=== PATIENT | male | born 1985 | race Caucasian/White ===

== ENCOUNTER 2023-10-30 10:02 | Outpatient (CLI) | payer OTHER, SELFPAY ==
--- OUTSIDE RECORDS SUMMARY | 2023-10-30 10:05 | XMS_ITS | Encounter Summary ---
Author Name [facility] Organization Department of Vetera Affairs Address [address] [place] [address] Support Name Relationship Address Phone VETO VELIZ Next of Kin [address] [place] [address] VETO ABDALLA Emergency Contact [address] [place] [phone] VETO ABDALLA Next of Kin [address] [place] [address] VETO ABDALLA Emergency Contact [address] [place] [phone] Insurance Providers: All historical and current Section Date Range: From patient's date of to the date document was created. This section includes the names of all active insurance providers for the patient. Insurance Provider Type of Coverage Plan Name Start of Policy Coverage End of Policy Coverage Group Number Member ID Insurance Provider's Telephone Number Policy Gilmore's Name Patient's Relationship to Policy Gilmore [employer]) PRESCRIPT ION NTCA Oct 26, 2014 [id number] [phone] TITI ABDALLA PATIENT [facility] NTCA GROUP HEALT H Oct 26, 2014 [id number] [phone] TITI ABDALLA PATIENT Selected Encounter This section includes the information on record at [place] for the Encounter. Date/Time Encounter Type Encounter Description Reason Pro vider Source Oct 29, 2023 11:24 AM Outpatient Encounter EVENT (HISTORICAL) IHE Encounter Template Text not used by [facility] Plan of Treatment: Future Appointments (+ 6 months) and Future Tests (+/- 45 days) The Plan of Treatment section includes future care activities for the patient from all [facility] treatmentfacilities. This section includes future appointments and future orders which are active, pending or scheduled. Future Appointments This section includes appointments that were scheduled to occur 6 months from the date of the Encounter, up to a maximum of 20 appointments. The data comes from all [facility] Appointment Date/Time Appointment Type Appointme nt Facility Name Oct 30, 2023 10:15 AM AMBULATORY - NONE [facility] Active, Pending, and Scheduled Orders This section includes a listing of several types of active, pending, and scheduled orders, including clinic medications orders, diagnostic test orders, procedure orders and consult orders; where the start date of the order is 45 days before the date of the Encounter or 45 days after the date of theEncounter. The data comes from all [facility]. Test Date/Time Test Type Test Details Facility Name Oct 29, 2023 04:02 PM Consult Order COMMUNITY CARE-MRI Cons Wireless Network Engineer's Choice [facility] Oct 30, 2023 12:00 AM Imaging - Magnetic Resonance Imaging (MRI) Order MRI ELBOW RIGHT (P) [facility] Social History: Smoking Status (Most current) and Tobacco Use (All prior to encounter date) This section includes the most current, and the historical, smoking and tobacco- related health factors from the [place] facility where the Encounter took place. Current Smoking Status This section includes the most current smoking, or tobacco-related health factor, from the [place] facility where the Encounter took place. Date/Time Current Smoking Status Comment Facil ity Nov 09, 2013 09:07 AM FORMER TOBACCO USE <1Y [facility] Tobacco Use History This section includes a history of the smoking, or tobacco-related health factors, that were collected on or before the date of the Encounter. The data comes from the [place] facility where the Encounter took place. Date/Time Smoking Status/Tobacco Use Comment F acility Mar 20, 2009 12:34 AM CURRENT TOBACCO USER [facility]
--- OUTSIDE RECORDS SUMMARY | 2023-10-30 10:05 | XMS_ITS | Encounter Summary ---
Author Name Department of Vetera Affairs Organization Department of Vetera Affairs Address [address] [place] [address] Support Name Relationship Address Phone VETO VELIZ Next of Kin [address] [place] [address] VETO ABDALLA Emergency Contact [address] [place] [phone] VETO ABDALLA Next of Kin [address] [place] [address] VETO ABDALLA Emergency Contact [address] [place] [phone] Insurance Providers: All historical and current [...] SCRIPTS) PRESCRIPT ION NTCA Oct 26, 2014 [id number] [phone] TITI ABDLALA PATIENT [facility] NTCA GROUP HEALT H Oct 26, 2014 [id number] TITI ABDALLA PATIENT Selected Encounter This section includes the information on record at [place] for the Encounter. Date/Time Encounter Type Encounter Description Reason Pro vider Source Dec 26, 2022 11:41 AM Outpatient Encounter CLINICAL PHARMACY E Encounter Template Text not used by [place] Plan of Treatment: Future Appointments (+ 6 months) and Future Tests (+/- 45 days) The Plan of Treatment section includes future care activities for the patient from all [place] treatmentfacilities. This section includes future appointments and future orders which are active, pending or scheduled. Future Appointments This section includes appointments that were scheduled to occur 6 months from the date of the Encounter, up to a maximum of 20 appointments. The data comes from all [place] treatment facilities. Appointment Date/Time Appointment Type Appointme nt Facility Name Feb 09, 2023 09:00 AM AMBULATORY - MEDICINE [facility] Lab Results: +/- 30 days of the encounter This section includes the Chemistry and Hematology Lab Results on record with [place] for the patient. Radiology Reports and Pathology Reports are provided separately, in subsequent sections. Lab Results This section contains the Chemistry/Hematology Results that were resulted 30 days before or 30 daysafter the date of the Encounter. Date/Time Source Result Type Result - Unit Interpretation Reference Range Comment Dec 26, 2022 10:05 AM [facility] CRYSTAL PANEL,SYNOVIAL Specimen Type: SYNOVIAL FLUID Comment: All crystal results are preliminary until the final result comment is entered. Final review of crystals will occur on the next business day. Left Knee Ordering Provider: ELAYNE VALDES Report Released Date/Time: Dec 26, 2022 10:11 AM Reporting Lab: [facility] [id number] Performing Lab: [facility] [id number] .CRYSTALS PRESENT .INTRACELLUL AR URATE MANY Dec 26, 2022 10:05 AM [facility] CELL COUNT(BODY FLUID) Specimen Type: SYNOVIAL FLUID Comment: The Reference range and other method performance specifications have not been established for this body fluid. The test result must be integrated into the clinical context of interpretation. Left Knee Unable to reach provider for corrected result.6-12-23/H SM WBC(BF) reported incorrectly as [id number] by [[id number]]. Changed to [id number] on Dec 29, 2022@11:50 by [[id number]]. Ordering Provider: ELAYNE VALDES Report Released Date/Time: Dec 26, 2022 10:11 AM Reporting Lab: [facility] [id number] Performing Lab: [facility] [id number] FLUID COLOR LT. YELLOW WBC(BF) 38544 RBC(BF) 89 FLUID APPEARANCE HAZY PMN(BF) 88.5 UNCLASSIFIED (BF) 0.0 MONO/MACROPH AGE(BF) 10.5 EOSIN(BF) 0.0 BASO(BF) 0.0 PLASMA CELLS(BF) 0.0 LYMPH(BF) 1.0 Vital Signs: All taken on the encounter date This section contains inpatient and outpatient Vital Signs collected on the date of the Encounter. Date/Time Temperature Pulse Blood Pressure Respiratory Rate SP02 Pain Height Weight Body Mass Index Source Dec 26, 2022 09:01 AM 97.3 F 95 /min 153/98 mm[Hg] 14 /min 99 % 8 [place] Social History: Smoking Status (Most current) and Tobacco Use (All prior to encounter date) This section includes the most current, and the historical, smoking and tobacco- related health factors from the [place] facility where the Encounter took place. Current Smoking Status This section includes the most current smoking, or tobacco-related health factor, from the [place] facility where the Encounter took place. Date/Time Current Smoking Status Comment Facil ity Nov 09, 2013 09:07 AM FORMER TOBACCO USE <1Y [facility] Tobacco Use History This section includes a history of the smoking, or tobacco-related health factors, that were collected on or before the date of the Encounter. The data comes from the [place] facility where the Encounter took place. Date/Time Smoking Status/Tobacco Use Comment F acility Mar 20, 2009 12:34 AM CURRENT TOBACCO USER [facility] Pathology Reports: +/- 30 days of the encounter Pathology Reports For cases when an order for pathology services may have been completed prior to the date of the Encounter, the report list includes the Pathology Reports that were completed up to 30 days before dateof the Encounter. For cases when an order for pathology services may have been completed after the date of the Encounter, the report list also includes the Pathology Reports that were completed up to30 days after date of the Encounter. The data comes from all [place] treatment facilities. Date/Time Pathology Report Provider Source Dec 26, 2022 10:32 AM LR MICROBIOLOGY RE [place]: Reporting Lab: [facility] [CLIA# [id number]] [place] [address] Accession [UID]: [id number] [[id number]] Received: Dec 26, 2022@10:32 Collection sample: SYNOVIAL FLUID Collection date: Dec 26, 2022 10:32 Provider: ELAYNE VALDES Comment on specimen: LEFT KNEE, IN SYRINGE Test(s) ordered: GRAM STAIN.................... completed: Dec 26, 2022 11:17 CULTURE & SUSCEPTIBILITY...... completed: Jan 02, 2023 * BACTERIOLOGY FINAL REPORT => Jan 02, 2023 13:55 TECH CODE: [id number] GRAM STAIN: DIRECT SMEAR of specimen before culturing shows: 3+ PMNS NO ORGANISMS SEEN Smear was performed on centrifuged sediment. CYTOSPIN-CONCENTRATED SMEAR: PMNS MONONUCLEAR CELLS NO ORGANISMS SEEN CULTURE PENDING CULTURE RESULTS: NO GROWTH 7 DAYS Bacteriology Remark(s): THIS REPORT IS FINAL =--=--=--=--=--=--=--=--=--=--=--=- -=--=--=--=--=--=--=--=--=--=--=--= --=--=-- Performing Laboratory: Bacteriology Report Performed By: [facility] [CLIA# [id number]] [place] [address] [facility] Encounter Notes: All associated encounter notes This section contains the clinical notes associated to the Encounter. Date/Time Encounter Note(s) Provider Source Dec 26, 2022 11:41 AM EDUCATION NOTE: LOCAL TITLE: EDUCATION MEDICATION INSTRUCTION STANDARD TITLE: EDUCATION NOTE DATE OF NOTE: DEC 26, 2022@11:41 ENTRY DATE: DEC 26, 2022@11:41:32 AUTHOR: ROSS ENCARNACION EXP COSIGNER: URGENCY: STATUS: COMPLETED MEDICATION EDUCATION PARTICIPANTS: Patient TEACHING STRATEGY: Face to Face READINESS TO LEARN: No barriers identified LEARNING NEEDS/OBJECTIVES Participant(s) indicates readiness to learn and has been instructed on indications, side effects, and directions for use. Participant(s) will receive medication information sheets for medications filled. Education included discussion of the following: New medication(s): naproxen, prednisone PATIENT/FAMILY RESPONSE (OUTCOME): Verbalizes critical information about the topic FOLLOW-UP RECOMMENDED: None needed /moe/ ROSS ENCARNACION RPH PHARMACIST Signed: 12/26/2022 11:42 ROSS ENCARNACION [facility]
--- OUTSIDE RECORDS SUMMARY | 2023-10-30 10:05 | XMS_ITS | Encounter Summary ---
Author Name Department of Vetera Affairs Organization Department of Vetera Affairs Address [address] [place] [address] Support Name Relationship Address Phone VETO VELIZ Next of Kin [address] [place] [address] VETO ABDALLA Emergency Contact [address] [place] [address] VETO ABDALLA Next of Kin [address] [place] [address] VETO ABDALLA Emergency Contact [address] [place] [phone] Insurance Providers: All historical and current [...] SCRIPTS) PRESCRIPT ION NTCA Oct 26, 2014 [id number] [phone] TITI ABDALLA PATIENT [facility] NTCA GROUP HEALT H Oct 26, 2014 [id number] TITI ABDALLA PATIENT Selected Encounter This section includes the information on record at [place] for the Encounter. Date/Time Encounter Type Encounter Description Reason Provider Source Oct 30, 2023 09:44 AM Outpatient Encounter COMMUNITY CARE CONSULT CHARI JONES Encounter Template Text not used by VA Plan of Treatment: Future Appointments (+ 6 months) and Future Tests (+/- 45 days) The Plan of Treatment section includes future care activities for the patient from all VA treatmentfacilities. This section includes future appointments and future orders which are active, pending or scheduled. Active, Pending, and Scheduled Orders This section includes a listing of several types of active, pending, and scheduled orders, including clinic medications orders, diagnostic test orders, procedure orders and consult orders; where the start date of the order is 45 days before the date of the Encounter or 45 days after the date of theEncounter. The data comes from all [place] treatment facilities. Test Date/Time Test Type Test Details Facility Name Oct 29, 2023 04:02 PM Consult Order COMMUNITY CARE-MRI Cons Registered Mail Clerk's Choice [facility] Oct 30, 2023 12:00 AM Imaging - Magnetic Resonance Imaging (MRI) Order MRI ELBOW RIGHT (P) [facility] Social History: Smoking Status (Most current) and Tobacco Use (All prior to encounter date) This section includes the most current, and the historical, smoking and tobacco- related health factors from the [place] facility where the Encounter took place. Current Smoking Status This section includes the most current smoking, or tobacco-related health factor, from the [place] facility where the Encounter took place. Date/Time Current Smoking Status Comment Facil ity Nov 09, 2013 09:07 AM FORMER TOBACCO USE <1Y [facility] Tobacco Use History This section includes a history of the smoking, or tobacco-related health factors, that were collected on or before the date of the Encounter. The data comes from the [place] facility where the Encounter took place. Date/Time Smoking Status/Tobacco Use Comment F acility Mar 20, 2009 12:34 AM CURRENT TOBACCO USER [facility] Encounter Notes: All associated encounter notes This section contains the clinical notes associated to the Encounter. Date/Time Encounter Note(s) Provider Source Oct 30, 2023 09:44 AM NONVA NOTE: LOCAL TITLE: COMMUNITY CARE-CARE COORDINATION PLAN NOTE STANDARD TITLE: NONVA NOTE DATE OF NOTE: OCT 30, 2023@09:44 ENTRY DATE: OCT 30, 2023@09:44:23 AUTHOR: CHARI JONES EXP COSIGNER: URGENCY: STATUS: COMPLETED Community Care Consult: COMMUNITY CARE-MRI Consult No: [id number] [facility] Referral #:[id number] Chief Complaint: patient seen at [facility] , xray done and MRI ordered,[place] Patient Admitted? No Level of Care Coordination Urgent Care Coordination was determined from: Chart Review Facility Community Care Office Contact Care Coordination Point of Contact: Chari Jones RN Phone Number: [phone] Services: Immediate facilitation of requested services and direct communication with the [facility] providers Plan: scheduled for an appointment today. [facility] sending referral packet to expedite the service. Flagged as HIGH RISK Considering 's underlying health issues. /es/ CHARI JONES RN COPYWRITER QUALITY HEAD Signed: 10/30/2023 09:46 CHARI JONES [facility]
--- OUTSIDE RECORDS SUMMARY | 2023-10-30 10:05 | XMS_ITS | Encounter Summary ---
Author Name Department of Vetera Affairs Organization Department of Vetera Affairs Address [address] [place] [address] Support Name Relationship Address Phone VETO VELIZ Next of Kin [address] [place] [address] VETO ABDALLA Emergency Contact [address] [place] [phone] VETO ABDALLA Next of Kin [address] [place] [address] VETO ABDALLA Emergency Contact [address] [place] [phone] Insurance Providers: All historical and current [...] SCRIPTS) PRESCRIPT ION NTCA Oct 26, 2014 [id number] [phone] TITI ABDALLA PATIENT [facility] NTCA GROUP HEALT H Oct 26, 2014 [id number] TITI ABDALLA PATIENT Selected Encounter This section includes the information on record at [place] for the Encounter. Date/Time Encounter Type Encounter Description Reason Pro vider Source Oct 30, 2023 09:49 AM Outpatient Encounter COMMUNITY CARE CONSULT IHE Encounter Template Text not used by [...] of theEncounter. The data comes from all [place] treatment facilities. Test Date/Time Test Type Test Details Facility Name Oct 29, 2023 04:02 PM Consult Order COMMUNITY CARE-MRI Cons Cad Administrator's Choice [facility] Oct 30, 2023 12:00 AM Imaging - Magnetic Resonance Imaging (MRI) Order MRI ELBOW RIGHT (P) [facility] Social History: Smoking Status (Most current) and Tobacco Use (All prior to encounter date) This section includes the most current, and the historical, smoking and tobacco- related health factors from the [place] facility where the Encounter took place. Current Smoking Status This section includes the most current smoking, or tobacco-related health factor, from the [place] facility where the Encounter took place. Date/Time Current Smoking Status Comment Facil ity Nov 09, 2013 09:07 AM FORMER TOBACCO USE <1Y [facility] Tobacco Use History This section includes a history of the smoking, or tobacco-related health factors, that were collected on or before the date of the Encounter. The data comes from the [place] facility where the Encounter took place. Date/Time Smoking Status/Tobacco Use Comment F acility Mar 20, 2009 12:34 AM CURRENT TOBACCO USER [facility] Encounter Notes: All associated encounter notes This section contains the clinical notes associated to the Encounter. Date/Time Encounter Note(s) Provider Source Oct 30, 2023 09:49 AM NONVA NOTE: LOCAL TITLE: COMMUNITY CARE APPOINTMENT LETTER (AUTOPRINT) STANDARD TITLE: NONVA NOTE DATE OF NOTE: OCT 30, 2023@09:49 ENTRY DATE: OCT 30, 2023@09:49:59 AUTHOR: ASIF GARBER COSIGNER: URGENCY: STATUS: COMPLETED Oct LANDON ABDALLA [address] [place] [phone] Dear LANDON ABDALLA, Your VA provider has referred you to a provider within the community for care. Your medical care for MRI has been authorized with the community care provider listed below. DO NOT REPORT TO THE [facility] Provider info: Office name, address, phone number: [address] [address] PH: [phone] Authorization number: [id number] Referral issue date: Oct Expiration date: Dec (subject to change based on first appointment) *Please bring this appt letter containing your authorization information to your appointment* If you are unable to keep this appointment or the appointment is no longer needed, please contact the community provider above for notification/rescheduling and then call the [facility] Office of Community Care at [phone] during the hours of 8:30AM - 3:00PM. If you need additional care/services not mentioned above or your authorization has and additional care is needed, please contact your primary care provider for a new referral. To review all care/service(s) approved under your referral, please go to the following link: [employer]) Co-Payments: If you are required to pay a VA co-payment, you will be billed by the [place] for each authorized visit that you attend. However, you are NOT REQUIRED to make co-payments to a community provider. Thank you for the opportunity to serve you. Sincerely, [place] Community [facility] ([facility]) /moe/ ASIF LIRA Signed: 10/30/2023 09:50 ASIF GARBER [facility]
--- OUTSIDE RECORDS SUMMARY | 2023-10-30 10:05 | XMS_ITS | Encounter Summary ---
Author Name Department of Vetera Affairs Organization Department of Vetera Affairs Address [address] [place] [address] Support Name Relationship Address Phone VETO VELIZ Next of Kin [address] [place] [address] VETO ABDALLA Emergency Contact [address] [place] [address] VETO ABDALLA Next of Kin [address] [place] [address] VETO ABDALLA Emergency Contact [address] [place] [phone] Insurance Providers: All historical and current [...] SCRIPTS) PRESCRIPT ION NTCA Oct 26, 2014 [id number] [phone] TITI ABDALLA PATIENT [facility] NT[facility] GROUP HEALT H Oct 26, 2014 [id number] [phone] TITI ABDALLA PATIENT Selected Encounter This section includes the information on record at [place] for the Encounter. Date/Time Encounter Type Encounter Description Reason Pro vider Source Oct 21, 2023 02:31 PM Outpatient Encounter COMMUNITY CARE CONSULT IHE Encounter [...] 20 appointments. The data comes from all [facility]. Appointment Date/Time Appointment Type Appointme nt Facility Name Oct 30, 2023 10:15 AM AMBULATORY - NONE [facility] Active, Pending, and Scheduled Orders This section includes a listing of several types of active, pending, and scheduled orders, including clinic medications orders, diagnostic test orders, procedure orders and consult orders; where the start date of the order is 45 days before the date of the Encounter or 45 days after the date of theEncounter. The data comes from all [facility]. Test Date/Time Test Type Test Details Facility Name Oct 29, 2023 04:02 PM Consult Order COMMUNITY CARE-MRI Cons [facility] Oct 30, 2023 12:00 AM Imaging - Magnetic Resonance Imaging (MRI) Order MRI ELBOW RIGHT (P) [facility] Social History: Smoking Status (Most current) and Tobacco Use (All prior to encounter date) This section includes the most current, and the historical, smoking and tobacco- related health factors from the [place] facility where the Encounter took place. Current Smoking Status This section includes the most current smoking, or tobacco-related health factor, from the [facility] where the Encounter took place. Date/Time Current Smoking Status Comment Facil ity Nov 09, 2013 09:07 AM FORMER TOBACCO USE <1Y [facility] Tobacco Use History This section includes a history of the smoking, or tobacco-related health factors, that were collected on or before the date of the Encounter. The data comes from the [place] facility where the Encounter took place. Date/Time Smoking Status/Tobacco Use Comment F acility Mar 20, 2009 12:34 AM CURRENT TOBACCO USER [facility] Encounter Notes: All associated encounter notes This section contains the clinical notes associated to the Encounter. Date/Time Encounter Note(s) Provider Source Oct 28, 2023 02:50 PM ADDENDUM: LOCAL TITLE: Addendum STANDARD TITLE: ADDENDUM DATE OF NOTE: OCT 28, 2023@14:50:43 ENTRY DATE: OCT 28, 2023@14:50:44 AUTHOR: JJ LEBRON COSIGNER: URGENCY: STATUS: COMPLETED WE cannot approve or request approavel fidencio naranjo why they want the scan. /es/ JJ LEBRON PHYSICIAN Signed: 10/28/2023 14:51 Receipt Acknowledged By: 10/29/2023 12:47 /es/ MARIELY KNUTSONRN REGISTERED NURSE === --- Original Document --- 10/21/23 COMMUNITY CARE-CARE COORDINATION PLAN NOTE: PROVIDER CONTACT Steph called from [facility] contacted on Oct to discuss requesting a consult be placed for an MRI of elbow. went into urgent care for elbow pain. Action Needed? Yes please place consult for MRI, if appropriate. /es/ DERICK AJ ADVANCED SELF PROPELLED MINING MACHINE OPERATOR Signed: 10/21/2023 14:34 Receipt Acknowledged By: 10/22/2023 08:23 /es/ JJ LEBRON PHYSICIAN 10/26/2023 11:12 /es/ KELLY KNUTSON, MSN, RN, RD, [facility], SARAHI FERRARO for MARIELY KNUTSON 10/23/2023 ADDENDUM STATUS: COMPLETED Jewelry Estimator sent request for records to [facility] at [phone] /es/ [facility] Signed: 10/23/2023 13:37 10/26/2023 ADDENDUM STATUS: COMPLETED Forwarding to [facility] PACT Kelly MAX RN. /es/ LAURA JESSICA RN REGISTERED NURSE Signed: 10/26/2023 08:39 Receipt Acknowledged By: 10/26/2023 11:15 /moe/ KELLY KNUTSON, MSN, RN, RD, CRMST STAFF NURSE, SARAHI FERRARO 10/26/2023 ADDENDUM STATUS: COMPLETED Steph from [facility] contacted [facility] to follow up with request for Community care MRI. Jewelry Estimator informed Steph request for records was sent to [facility] at fax number mentioned above. Steph will try to track fax above location to complete request. Jewelry Estimator provided Steph with [facility] fax # . /es/ CHALINO HIDALGO Signed: 10/26/2023 09:58 10/26/2023 ADDENDUM STATUS: COMPLETED will await outside documentation to review as possible x-rays were taken there. /moe/ NANCY MOURA, RN, RDH, CRMST STAFF NURSE, SARAHI FERRARO Signed: 10/26/2023 11:16 10/28/2023 ADDENDUM STATUS: COMPLETED Steph called from [facility] seeking for a MRI referral which Vet scheduled for an appointmtnt this Thursday. Please review the note below. Thank you. /moe/ LELA BATES FINANCIAL ACCOUNTS COVER MAKER Signed: 10/28/2023 13:58 Receipt Acknowledged By: 10/28/2023 14:50 /karen LEBRON PHYSICIAN 10/28/2023 15:25 /moe/ NANCY MOURA, RN, RD, [facility] STAFF NURSE, JJ DANIELSON [facility] Oct 28, 2023 01:54 PM ADDENDUM: LOCAL TITLE: Addendum STANDARD TITLE: ADDENDUM DATE OF NOTE: OCT 28, 2023@13:54:30 ENTRY DATE: OCT 28, 2023@13:54:31 AUTHOR: LELA BATES EXP COSIGNER: URGENCY: STATUS: COMPLETED Steph called from [facility] seeking for a MRI referral which Vet scheduled for an appointmtnt this Thursday. Please review the note below. Thank you. /moe/ LELA BATES [employer] ACCOUNTS COVER MAKER Signed: 10/28/2023 13:58 Receipt Acknowledged By: 10/28/2023 14:50 /karen LEBRON PHYSICIAN 10/28/2023 15:25 /NANCY Walton, RN, RDH, [facility]SE, SARAHI FERRARO === --- Original Document --- 10/21/23 COMMUNITY CARE-CARE COORDINATION PLAN NOTE: PROVIDER CONTACT Steph called from [facility] contacted on Oct to discuss requesting a consult be placed for an MRI of elbow. [place] went into urgent care for elbow pain. Action Needed? Yes please place consult for MRI, if appropriate. /es/ DERICK AJ ADVANCED SELF PROPELLED MINING MACHINE OPERATOR Signed: 10/21/2023 14:34 Receipt Acknowledged By: 10/22/2023 08:23 /es/ JJ LEBRON PHYSICIAN 10/26/2023 11:12 /es/ KELLY KNUTSON, MSN, RN, RDH, CRMST STAFF NURSE, SARAHI FERRARO for MARIELY KNUTSON 10/23/2023 ADDENDUM STATUS: COMPLETED Jewelry Estimator sent request for records to [facility] at [phone] /es/ [facility] Signed: 10/23/2023 13:37 10/26/2023 ADDENDUM STATUS: COMPLETED Forwarding to [facility] PACT Kelly MAX RN. /es/ LAURA JESSICA RN REGISTERED NURSE Signed: 10/26/2023 08:39 Receipt Acknowledged By: 10/26/2023 11:15 /es/ KELLY KNUTSON MSN, RN, RDH, CRMST STAFF NURSE, SARAHI FERRARO 10/26/2023 ADDENDUM STATUS: COMPLETED Steph from [facility] contacted [facility] to follow up with request for Community care MRI. Jewelry Estimator informed Steph request for records was sent to [facility] at fax number mentioned above. Steph will try to track fax above location to complete request. Jewelry Estimator provided Steph with [facility] fax # . /es/ CHALINO HIDALGO Signed: 10/26/2023 09:58 10/26/2023 ADDENDUM STATUS: COMPLETED will await outside documentation to review as possible x-rays were taken there. /es/ KELLY KNUTSON, MSN, RN, RDH, CRMST STAFF NURSE, SARAHI FERRARO Signed: 10/26/2023 11:16 10/28/2023 ADDENDUM STATUS: COMPLETED WE cannot approve or request approavel fidencio naranjo why they want the scan. /es/ JJ LEBRON PHYSICIAN Signed: 10/28/2023 14:51 Receipt Acknowledged By: * AWAITING SIGNATURE * ZENIAMARIELY BATES,LELA Montiel [facility] Oct 26, 2023 08:38 AM ADDENDUM: LOCAL TITLE: Addendum STANDARD TITLE: ADDENDUM DATE OF NOTE: OCT 26, 2023@08:38:55 ENTRY DATE: OCT 26, 2023@08:38:56 AUTHOR: LAURA JESSICA EXP COSIGNER: URGENCY: STATUS: COMPLETED Forwarding to covering PACT RNKelly RN. /moe/ LAURA JESSICA RN REGISTERED NURSE Signed: 10/26/2023 08:39 Receipt Acknowledged By: 10/26/2023 11:15 /moe/ KELLY KNUTSON, MSN, RN, RDH, CRMST STAFF NURSE, [facility] JASMINE === --- Original Document --- 10/21/23 COMMUNITY CARE-CARE COORDINATION PLAN NOTE: PROVIDER CONTACT Steph called from [facility] contacted on Oct to discuss requesting a consult be placed for an MRI of elbow. [place] went into urgent care for elbow pain. Action Needed? Yes please place consult for MRI, if appropriate. /es/ DERICK AJ ADVANCED SELF PROPELLED MINING MACHINE OPERATOR Signed: 10/21/2023 14:34 Receipt Acknowledged By: 10/22/2023 08:23 /es/ JJ LEBRON PHYSICIAN 10/26/2023 11:12 /moe/ KELLY KNUTSON, MSN, RN, RDH, CRMST STAFF NURSE, [facility] JASMINE for MARIELY KNUTSON 10/23/2023 ADDENDUM STATUS: COMPLETED Jewelry Estimator sent request for records to [facility] at [phone] /es/ [facility] Signed: 10/23/2023 13:37 10/26/2023 ADDENDUM STATUS: COMPLETED Steph from [facility] contacted [facility] to follow up with request for Community care MRI. Jewelry Estimator informed Steph request for records was sent to [facility] at fax number mentioned above. Steph will try to track fax above location to complete request. Jewelry Estimator provided Steph with [facility] fax # . /es/ CHALINO HIDALGO Signed: 10/26/2023 09:58 10/26/2023 ADDENDUM STATUS: UNSIGNED You may not VIEW this UNSIGNED Addendum. LAURA JESSICA [facility] Oct 21, 2023 02:31 PM NONVA NOTE: LOCAL TITLE: COMMUNITY CARE-CARE COORDINATION PLAN NOTE STANDARD TITLE: NONVA NOTE DATE OF NOTE: OCT 21, 2023@14:31 ENTRY DATE: OCT 21, 2023@14:32:02 AUTHOR: DERICK AJ EXP COSIGNER: URGENCY: STATUS: COMPLETED COMMUNITY CARE-CARE COORDINATION PLAN NOTE Has ADDENDA PROVIDER CONTACT Steph called from [facility] contacted on Oct to discuss requesting a consult be placed for an MRI of elbow. [place] went into urgent care for elbow pain. Action Needed? Yes please place consult for MRI, if appropriate. /moe/ DERICK AJ ADVANCED SELF PROPELLED MINING MACHINE OPERATOR Signed: 10/21/2023 14:34 Receipt Acknowledged By: 10/22/2023 08:23 /es/ JJ LEBRON PHYSICIAN 10/26/2023 11:12 /es/ NANCY MOURA, RN, RDH, CRMST STAFF NURSE, [facility] for GENNAGarrett Muniz ZENIA 10/23/2023 ADDENDUM STATUS: COMPLETED Jewelry Estimator sent request for records to [facility] at [phone] /es/ [facility] Signed: 10/23/2023 13:37 10/26/2023 ADDENDUM STATUS: COMPLETED Forwarding to [facility] PACT Kelly MAX RN. /moe/ LAURA JESSICA RN REGISTERED NURSE Signed: 10/26/2023 08:39 Receipt Acknowledged By: 10/26/2023 11:15 /moe/ KELLY J WHITE, MSN, RN, RDH, CRMST STAFF NURSE, CBROCK FERRARO 10/26/2023 ADDENDUM STATUS: COMPLETED Steph from [facility] contacted [facility] to follow up with request for [facility] care MRI. Jewelry Estimator informed Steph request for records was sent to [facility] at fax number mentioned above. Steph will try to track fax above location to complete request. Jewelry Estimator provided Steph with [facility] fax # . /es/ CHALINO HIDALGO Signed: 10/26/2023 09:58 10/26/2023 ADDENDUM STATUS: COMPLETED will await outside documentation to review as possible x-rays were taken there. /es/ KELLY KNUTSON, MSN, RN, RD, CRMST STAFF NURSE, CB JASMINE Signed: 10/26/2023 11:16 10/28/2023 ADDENDUM STATUS: COMPLETED Steph called from [facility] seeking for a MRI referral which Vet scheduled for an appointmtnt this Thursday. Please review the note below. Thank you. /es/ LELA BATES FINANCIAL ACCOUNTS COVER MAKER Signed: 10/28/2023 13:58 Receipt Acknowledged By: 10/28/2023 14:50 /es/ JJ LEBRON PHYSICIAN * AWAITING SIGNATURE * KELLY KNUTSON 10/28/2023 ADDENDUM STATUS: COMPLETED WE cannot approve or request approavel fidencio loomis eknow why they want the scan. /moe/ JJ LEBRON PHYSICIAN Signed: 10/28/2023 14:51 Receipt Acknowledged By: * AWAITING SIGNATURE * MARIELY KNUTSON [facility]
--- OUTSIDE RECORDS SUMMARY | 2023-10-30 10:05 | XMS_ITS | Encounter Summary ---
Author Name Department of Vetera Affairs Organization Department of Vetera ns Affairs Address [address] [place] [address] Support Name Relationship Address Phone VETO VELIZ Next of Kin [address] [place] [address] VETO ABDALLA Emergency Contact [address] [place] [phone] VETO ABDALLA Next of Kin [address] [place] [address] VETO ABDALLA Emergency Contact [address] [place] [phone] Insurance Providers: All historical and current [...] SCRIPTS) PRESCRIPT ION NTCA Oct 26, 2014 [id number] [phone] TITI ABDALLA PATIENT [facility] NTCA GROUP HEALT H Oct 26, 2014 [id number] [phone] TITI ABDALLA PATIENT Selected Encounter This section includes the information on record at [place] for the Encounter. Date/Time Encounter Type Encounter Description Reason Pro vider Source Oct 21, 2023 03:21 PM Outpatient Encounter PRIMARY CARE/MEDICINE E Encounter Template Text not used by [place] Plan of Treatment: Future Appointments (+ 6 months) and Future Tests (+/- 45 days) The Plan of Treatment section includes future care activities for the patient from all [place] treatmentfacilities. This section includes future appointments and future orders which are active, pending or scheduled. Future Appointments This section includes appointments that were scheduled to occur 6 months from the date of the Encounter, up to a maximum of 20 appointments. The data comes from all [facility]. Appointment Date/Time Appointment Type Appointme nt Facility Name Oct 30, 2023 10:15 AM AMBULATORY - NONE [facility] Active, Pending, and Scheduled Orders This section includes a listing of several types of active, pending, and scheduled orders, including clinic medications orders, diagnostic test orders, procedure orders and consult orders; where the start date of the order is 45 days before the date of the Encounter or 45 days after the date of theEncounter. The data comes from all [facility]. Test Date/Time Test Type Test Details Facility Name Oct 29, 2023 04:02 PM Consult Order COMMUNITY CARE-MRI Cons [facility]IN Oct 30, 2023 12:00 AM Imaging - Magnetic Resonance Imaging (MRI) Order MRI ELBOW RIGHT (P) [facility] Social History: Smoking Status (Most current) and Tobacco Use (All prior to encounter date) This section includes the most current, and the historical, smoking and tobacco- related health factors from the [place] facility where the Encounter took place. Current Smoking Status This section includes the most current smoking, or tobacco-related health factor, from the [facility] where the Encounter took place. Date/Time Current Smoking Status Comment Facil ity Nov 09, 2013 09:07 AM FORMER TOBACCO USE <1Y [facility] Tobacco Use History This section includes a history of the smoking, or tobacco-related health factors, that were collected on or before the date of the Encounter. The data comes from the [place] facility where the Encounter took place. Date/Time Smoking Status/Tobacco Use Comment F acility Mar 20, 2009 12:34 AM CURRENT TOBACCO USER [facility] Encounter Notes: All associated encounter notes This section contains the clinical notes associated to the Encounter. Date/Time Encounter Note(s) Provider Source Oct 21, 2023 03:21 PM PRIMARY CARE NOTE: LOCAL TITLE: CBOC PROGRESS NOTE - MAG[facility] STANDARD TITLE: PRIMARY CARE NOTE DATE OF NOTE: OCT 21, 2023@15:21 ENTRY DATE: OCT 21, 2023@15:21:55 AUTHOR: JJ LEBRON EXP COSIGNER: URGENCY: STATUS: COMPLETED CBOC PROGRESS NOTE - MAG[facility] Has ADDENDA We need to et notes form when jagdish was sen for his elbow before we can rquest any type of testing. I cannot find anything in [facility] regarding his Urgent car visit which i swhat I need. I don't see any xrays either. Please obtain records of his URgent care visit and then we can proceed. /moe/ JJ LEBRON PHYSICIAN Signed: 10/21/2023 15:23 Receipt Acknowledged By: 10/23/2023 09:16 /moe/ JUSTO GARCIA LPN CLINIC 10/23/2023 ADDENDUM STATUS: COMPLETED No reports found in [facility] or [place] regarding Elbow pain/injury. RTC with RN has been placed for eval. /moe/ JUSTO GARCIA LPN CLINIC Signed: 10/23/2023 09:17 JJ LEBRON CBOC
--- OUTSIDE RECORDS SUMMARY | 2023-10-30 10:05 | XMS_ITS | Continuity of Care Document ---
Author Name [facility] Organization [facility] Care Team Providers Care Biology Professor Name Role Phone [facility] Unavailable Unavailable Problems Combined list of problems from Department of Defense and Veterans Affairs facilities. It does not include entries that were removed or entered in error. 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 Condition [facility] Lipoma * (ICD-9-CM 214.9/214.0) Active Condition [facility] Tobacco Use Disorder * (ICD-9-CM 305.1) Active Condition [facility] Traumatic brain injury with no loss of consciousness (SNOMED CT 330348856) Active Condition [facility] visit for: services physical separation Active Condition [facility] benign skin neoplasm subcutaneous lipoma Active Condition [facility] visit for: preoperative exam Inactive Condition [facility] visit for: ears, nose, and throat exam Inactive Condition [facility] Diagnosis: ICD-10-CM Z00.8 Encounter for other general examination Active Diagnosis [facility] Diagnosis: ICD-10-CM M1A.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 Medication Details Route Status Patient Instructions Prescription Expires Prescription Number Last Dispense Date Ordering Provider Order Date Order Qty Source MULTIVITAMI NS CAP/TAB TAKE ONE TABLET BY MOUTH EVERY DAY ORALLY ACTIVE [facility] NAPROXEN 500MG TAB TAKE ONE TABLET BY MOUTH TWO TIMES A DAY ORALLY 01/25/2023 [id number] VIRIDIANA VALDES A 2022 20 [facility] PREDNISONE 20MG TAB TAKE ONE TABLET BY MOUTH TWICE A DAY ORALLY DISCONT INUED 08/22/2023 [id number] RAMA LEBRONCA L 2023 10 [facility] PREDNISONE 20MG TAB TAKE ONE TABLET BY MOUTH TWICE A DAY ORALLY DISCONT INUED 07/09/2023 [id number] RAMA LEBRONCA Bruce 2022 10 [facility] PREDNISONE 20MG TAB TAKE ONE TABLET BY MOUTH TWICE A DAY ORALLY DISCONT INUED 06/14/2023 [id number] RAMA LEBRONCA Bruce 2022 10 [facility] PREDNISONE 20MG TAB TAKE ONE TABLET BY MOUTH TWICE A DAY ORALLY DISCONT INUED 04/25/2023 [id number] JJ LEBRON 2022 10 [facility] PREDNISONE 20MG TAB TAKE ONE TABLET BY MOUTH TWICE A DAY ORALLY DISCONT INUED 03/11/2023 [id number] 3 NACHO LEBRONECCA L 2022 10 [facility] PREDNISONE 20MG TAB TAKE ONE TABLET BY MOUTH TWICE A DAY ORALLY 10/03/2023 [id number] 4 RAMA LEBRONCA L 2023 10 [facility] PREDNISONE 20MG TAB TAKE THREE TABLETS BY MOUTH EVERY DAY ORALLY 01/25/2023 [id number] VIRIDIANA VALDES A 2022 15 [facility] Allergies, Adverse Reactions, Alerts Combined list of allergies from Department of Defense and Veterans Affairs facilities. It does not include entries that were removed or entered in error. Substance Category Reaction Severity Reaction type Status Date Reported Comments Source No Known Allergies Drug allergy (disorder) active 05/29/2006 [facility] Immunizations Combined list of available immunizations from the Department of Defense and Veterans Affairs facilities. Immunization Series Date Given Administered By Site Reaction Lot Number CVX Code Drug Family And Consumer Education Teacher Status Comments Source TD (ADULT), 5 LF TETANUS TOXOID, PRESERVATIVE FREE, ADSORBED 2022 SARAH CASTANEDA LEFT DELTO ID [id number] complet ed [facility] TDAP 2009 115 complet ed Sandofi Lot: ([id number]) Expires: 09/21/2011 [facility] typhoid Vi capsular polysaccharid e vaccine 2 2007 UNK 101 Cathy (GEOVANNA) complet ed typhoid Vi capsular polysacch aride vaccine [facility] influenza virus vaccine, live, attenuated, for intranasal use 0 2006 [id number] Resultly. (MED) complet ed influenza virus vaccine, live, attenuate d, for intranasa l use DoD anthrax vaccine 3 2006 [id number] [employer] [place] (MIP) complet ed anthrax vaccine DoD anthrax vaccine 2 2006 UNK 24 Unknown (UNK) comple t ed anthrax vaccine DoD anthrax vaccine 1 2006 [id number] [employer] [place] (MIP) complet ed anthrax vaccine DoD vaccinia (smallpox) vaccine 0 2006 UNK 75 (TRN) complet ed vaccinia (smallpox ) vaccine DoD TD(ADULT) UNSPECIFIED FORMULATION 2006 139 complet ed [facility] influenza virus vaccine, split virus (incl. purified surface antigen)-reti red CODE 0 2005 UNK [facility] complet ed influenza virus vaccine, split virus (incl. purified surface antigen)- retired CODE DoD typhoid vaccine, parenteral, other than acetone-kille d, dried 1 2005 UNKNOWN 41 Unknown (UNK) comple t ed typhoid vaccine, parentera l, other than acetone-k illed, dried DoD influenza virus vaccine, split virus (incl. purified surface antigen)-reti red CODE 1 2004 UNKNOWN 15 Unknown (UNK) comple t ed influenza virus vaccine, split virus (incl. purified surface antigen)- retired CODE DoD hepatitis A and hepatitis B vaccine 3 2004 UNKNOWN 104 Unknown (UNK) comple t ed hepatitis A and hepatitis B vaccine DoD typhoid vaccine, parenteral, other than acetone-kille d, dried 1 2004 UNKNOWN 41 Unknown (UNK) comple t ed typhoid vaccine, parentera l, other than acetone-k illed, dried DoD hepatitis B vaccine, adult dosage 3 2004 UNKNOWN 43 Unknown (UNK) comple t ed hepatitis B vaccine, adult dosage DoD influenza virus vaccine, split virus (incl. purified surface antigen)-reti red CODE 1 2003 [id number] Kat-Forrest (Inactive) (SD) complet ed influenza virus vaccine, split virus (incl. purified surface antigen)- retired CODE DoD trivalent poliovirus vaccine, live, oral 1 2003 UNKNOWN 02 Unknown (UNK) comple t ed trivalent polioviru s vaccine, live, oral DoD tetanus and diphtheria toxoids, adsorbed, preservative free, for adult use (2 Lf of tetanus toxoid and 2 Lf of diphtheria toxoid) 1 2003 [id number] Other (OTH) complet ed tetanus and diphtheri a toxoids, adsorbed, preservat nataliia free, for adult use (2 Lf of tetanus toxoid and 2 Lf of diphtheri a toxoid) DoD poliovirus vaccine, inactivated 1 2003 [id number] Other (OTH) complet ed polioviru s vaccine, inactivat ed DoD yellow fever vaccine 1 2003 [id number] Other (OTH) complet ed yellow fever vaccine DoD hepatitis B vaccine, adult dosage 2 2003 UNKNOWN 43 Unknown (UNK) comple t ed hepatitis B vaccine, adult dosage DoD hepatitis A vaccine, adult dosage 2 2003 UNKNOWN 52 Unknown (UNK) comple t ed hepatitis A vaccine, adult dosage DoD hepatitis A and hepatitis B vaccine 2 2003 [id number] Mayi Zhaopin (SKB) complet ed hepatitis A and hepatitis B vaccine DoD measles, mumps and rubella virus vaccine 1 2003 [id number] 03 Merck (MSD) complet ed measles, mumps and rubella virus vaccine DoD meningococcal polysaccharid e vaccine (MPSV4) 1 2003 [id number] Other (OTH) complet ed meningoco ccal polysacch aride vaccine (MPSV4) DoD pneumococcal polysaccharid e vaccine, 23 valent 1 2003 [id number] 33 Merck (MSD) complet ed pneumococ mia polysacch aride vaccine, 23 valent DoD hepatitis A and hepatitis B vaccine 1 2003 [id number] [place], [place] [address] ([facility] complet ed hepatitis A and hepatitis B vaccine DoD measles, mumps and rubella virus vaccine 1 2003 UNKNOWN 03 Unknown (UNK) comple t ed measles, mumps and rubella virus vaccine DoD meningococcal polysaccharid e vaccine (MPSV4) 1 2003 UNKNOWN 32 Unknown (UNK) comple t ed meningoco ccal polysacch aride vaccine (MPSV4) DoD pneumococcal polysaccharid e vaccine, 23 valent 1 2003 UNKNOWN 33 Unknown (UNK) comple t ed pneumococ mia polysacch aride vaccine, 23 valent DoD hepatitis B vaccine, adult dosage 1 2003 UNKNOWN 43 Unknown (UNK) comple t ed hepatitis B vaccine, adult dosage DoD hepatitis A vaccine, adult dosage 1 2003 UNKNOWN 52 Unknown (UNK) comple t ed hepatitis A vaccine, adult dosage DoD hepatitis A and hepatitis B vaccine 1 2003 UNKNOWN 104 Unknown (UNK) comple t ed hepatitis A and hepatitis B vaccine DoD Results Combined list of recent chemistry, hematology and other laboratory results from Department of Defense and Veterans Affairs, ranging from 15 months to all on record, depending upon the facility. Order Name Results Value Reference Range Date Interpretation Specimen Comments Source HEMOGLOB IN A1C HEMOGLOBIN A1C/HEMOGL OBIN.TOTAL IN BLOOD 5.2 4.0 - 6.0 02/09 Specimen Type: BLOOD Comment: Values obtained from A1C measurement s can vary. For typical A1C assays, a reported value of 7.0 could actually be between 6.7 and 7.3 if measured by a reference method. A reported value of 9.0 could actually be between 8.7 and 9.3. Ref: http://www. ngsp.org/[place] Pdata.asp Ordering Provider: MAURICIO LEBRON Report Released Date/Time: Feb 09, 2023 09:41 AM Reporting Lab: [facility] [address] Performing Lab: [facility] [address] [facility] COMPREHE NSIVE METABOLI C PANEL+MG CREATININE [MASS/VOLU ME] IN SERUM OR PLASMA 0.9 0.7 - 1.2 02/09 Specimen Type: PLASMA No comment entered. Ordering Provider: MAURICIO LEBRON Report Released Date/Time: Feb 09, 2023 09:41 AM Reporting Lab: [facility] [address] Performing Lab: [facility] [address] [facility] COMPREHE NSIVE METABOLI C PANEL+MG UREA NITROGEN [MASS/VOLU ME] IN SERUM OR PLASMA 13 8 - 26 02/09 Specimen Type: PLASMA No comment entered. Ordering Provider: MAURICIO LEBRON Report Released Date/Time: Feb 09, 2023 09:41 AM Reporting Lab: [facility] [address] Performing Lab: [facility] [address] [facility] COMPREHE NSIVE METABOLI C PANEL+MG GLUCOSE [MASS/VOLU ME] IN SERUM OR PLASMA 96 70 - 100 02/09 Specimen Type: PLASMA No comment entered. Ordering Provider: MAURICIO LEBRON Report Released Date/Time: Feb 09, 2023 09:41 AM Reporting Lab: [facility] [address] Performing Lab: [facility] [address] [facility] COMPREHE NSIVE METABOLI C PANEL+MG SODIUM [MOLES/VOL UME] IN SERUM OR PLASMA 142 136 - 145 02/09 Specimen Type: PLASMA No comment entered. Ordering Provider: MAURICIO LEBRON Report Released Date/Time: Feb 09, 2023 09:41 AM Reporting Lab: [facility] [address] Performing Lab: [facility] [address] [facility] COMPREHE NSIVE METABOLI C PANEL+MG POTASSIUM [MOLES/VOL UME] IN SERUM OR PLASMA 4.4 3.5 - 5.1 02/09 Specimen Type: PLASMA No comment entered. Ordering Provider: MAURICIO LEBRON Report Released Date/Time: Feb 09, 2023 09:41 AM Reporting Lab: [facility] [address] Performing Lab: [facility] [address] [facility] COMPREHE NSIVE METABOLI C PANEL+MG CHLORIDE [MOLES/VOL UME] IN SERUM OR PLASMA 106 98 - 107 02/09 Specimen Type: PLASMA No comment entered. Ordering Provider: MAURICIO LEBRON Report Released Date/Time: Feb 09, 2023 09:41 AM Reporting Lab: [facility] [address] Performing Lab: [facility] [address] [facility] COMPREHE NSIVE METABOLI C PANEL+MG CARBON DIOXIDE, TOTAL [MOLES/VOL UME] IN SERUM OR PLASMA - 02/09 Specimen Type: PLASMA No comment entered. Ordering Provider: MAURICIO LEBRON Report Released Date/Time: Feb 09, 2023 09:41 AM Reporting Lab: [facility] [address] Performing Lab: [facility] [address] [facility] COMPREHE NSIVE METABOLI C PANEL+MG CALCIUM [MASS/VOLU ME] IN SERUM OR PLASMA 9.9 8.4 - 10.2 02/09 Specimen Type: PLASMA No comment entered. Ordering Provider: MAURICIO LEBRON Report Released Date/Time: Feb 09, 2023 09:41 AM Reporting Lab: [facility] [address] Performing Lab: [facility] [address] [facility] COMPREHE NSIVE METABOLI C PANEL+MG PROTEIN [MASS/VOLU ME] IN SERUM OR PLASMA 8.0 6.0 - 8.3 02/09 Specimen Type: PLASMA No comment entered. Ordering Provider: MAURICIO LEBRON Report Released Date/Time: Feb 09, 2023 09:41 AM Reporting Lab: [facility] [address] Performing Lab: [facility] [address] [facility] COMPREHE NSIVE METABOLI C PANEL+MG ALBUMIN [MASS/VOLU ME] IN SERUM OR PLASMA 4.6 3.5 - 5.2 02/09 Specimen Type: PLASMA No comment entered. Ordering Provider: MAURICIO LEBRON Report Released Date/Time: Feb 09, 2023 09:41 AM Reporting Lab: [facility] [address] Performing Lab: [facility] [address] [facility] COMPREHE NSIVE METABOLI C PANEL+MG BILIRUBIN. TOTAL [MASS/VOLU ME] IN SERUM OR PLASMA 0.3 0.2 - 1.2 02/09 Specimen Type: PLASMA No comment entered. Ordering Provider: MAURICIO LEBRON Report Released Date/Time: Feb 09, 2023 09:41 AM Reporting Lab: [facility] [address] Performing Lab: [facility] [address] [facility] COMPREHE NSIVE METABOLI C PANEL+MG MAGNESIUM [MASS/VOLU ME] IN SERUM OR PLASMA 2.0 1.6 - 2.6 02/09 Specimen Type: PLASMA No comment entered. Ordering Provider: MAURICIO LEBRON Report Released Date/Time: Feb 09, 2023 09:41 AM Reporting Lab: [facility] [address] Performing Lab: [facility] [address] [facility] COMPREHE NSIVE METABOLI C PANEL+MG ANION GAP IN SERUM OR PLASMA 9 5 - 15 02/09 Specimen Type: PLASMA No comment entered. Ordering Provider: MUARICIO LEBRON Report Released Date/Time: Feb 09, 2023 09:41 AM Reporting Lab: [facility] [address] Performing Lab: [facility] [address] [facility] COMPREHE NSIVE METABOLI C PANEL+MG ALKALINE PHOSPHATAS E [ENZYMATIC ACTIVITY/V OLUME] IN SERUM OR PLASMA 67 40 - 150 02/09 Specimen Type: PLASMA No comment entered. Ordering Provider: MAURICIO LEBRON Report Released Date/Time: Feb 09, 2023 09:41 AM Reporting Lab: [facility] [address] Performing Lab: [facility] [address] [facility] COMPREHE NSIVE METABOLI C PANEL+MG ALANINE AMINOTRANS FERASE [ENZYMATIC ACTIVITY/V OLUME] IN SERUM OR PLASMA 47 02/09 Specimen Type: PLASMA No comment entered. Ordering Provider: MAURICIO LEBRON Report Released Date/Time: Feb 09, 2023 09:41 AM Reporting Lab: [facility] [address] Performing Lab: [facility] [address] [facility] COMPREHE NSIVE METABOLI C PANEL+MG ASPARTATE AMINOTRANS FERASE [ENZYMATIC ACTIVITY/V OLUME] IN SERUM OR PLASMA 34 02/09 Specimen Type: PLASMA No comment entered. Ordering Provider: MAURICIO LEBRON Report Released Date/Time: Feb 09, 2023 09:41 AM Reporting Lab: [facility] [address] Performing Lab: [facility] [address] [facility] COMPREHE NSIVE METABOLI C PANEL+MG GLOMERULAR FILTRATION RATE/1.73 SQ M.PREDICTE D [VOLUME RATE/AREA] IN SERUM, PLASMA OR BLOOD BY CREATININE -BASED FORMULA (CKD-EPI 2020) >90 02/09 Specimen Type: PLASMA No comment entered. Ordering Provider: MAURICIO LEBRON Report Released Date/Time: Feb 09, 2023 09:41 AM Reporting Lab: [facility] [address] Performing Lab: [facility] [address] [facility] LIPID PANEL,NO N-FASTIN G CHOLESTERO L [MASS/VOLU ME] IN SERUM OR PLASMA 194 02/09 Specimen Type: PLASMA No comment entered. Ordering Provider: MAURICIO LEBRON Report Released Date/Time: Feb 09, 2023 09:41 AM Reporting Lab: [facility] [address] Performing Lab: [facility] [address] [facility] LIPID PANEL,NO N-FASTIN G CHOLESTERO L IN HDL [MASS/VOLU ME] IN SERUM OR PLASMA 61 02/09 Specimen Type: PLASMA No comment entered. Ordering Provider: MAURICIO LEBRON Report Released Date/Time: Feb 09, 2023 09:41 AM Reporting Lab: [facility] [address] Performing Lab: [facility] [address] [facility] LIPID PANEL,NO N-FASTIN G CHOLESTERO L IN LDL [MASS/VOLU ME] IN SERUM OR PLASMA BY QUEENIE Petty 105 02/09 H Specimen Type: PLASMA No comment entered. Ordering Provider: MAURICIO LEBRON Report Released Date/Time: Feb 09, 2023 09:41 AM Reporting Lab: [facility] [address] Performing Lab: [facility] [address] [facility] LIPID PANEL,NO N-FASTIN G CHOLESTERO L IN VLDL [MASS/VOLU ME] IN SERUM OR PLASMA BY QUEENIE Petty 28 02/09 Specimen Type: PLASMA No comment entered. Ordering Provider: MAURICIO LEBRON Report Released Date/Time: Feb 09, 2023 09:41 AM Reporting Lab: [facility] [address] Performing Lab: [facility] [address] [facility] LIPID PANEL,NO N-FASTIN G CHOLESTERO L NON HDL [MASS/VOLU ME] IN SERUM OR PLASMA 133 02/09 H Specimen Type: PLASMA No comment entered. Ordering Provider: MAURICIO LEBRON Report Released Date/Time: Feb 09, 2023 09:41 AM Reporting Lab: [facility] [address] Performing Lab: [facility] [address] [facility] LIPID PANEL,NO N-FASTIN G TRIGLYCERI DE [MASS/VOLU ME] IN SERUM OR PLASMA 142 02/09 Specimen Type: PLASMA No comment entered. Ordering Provider: MAURICIO LEBRON Report Released Date/Time: Feb 09, 2023 09:41 AM Reporting Lab: [facility] [address] Performing Lab: [facility] [address] [facility] URIC ACID URATE [MASS/VOLU ME] IN SERUM OR PLASMA 9.2 3.5 - 7.2 02/09 H Specimen Type: PLASMA No comment entered. Ordering Provider: MAURICIO LEBRON Report Released Date/Time: Feb 09, 2023 09:41 AM Reporting Lab: [facility] [address] Performing Lab: [facility] [address] [facility] ANTI-HEP C(EIA) HEPATITIS C VIRUS AB [PRESENCE] IN SERUM NEGATIVE 02/09 Specimen Type: SERUM No comment entered. Ordering Provider: MAURICIO LEBRON Report Released Date/Time: Feb 09, 2023 09:44 AM Reporting Lab: [facility] [address] Performing Lab: [facility] [address] [facility] CBC & DIFF LEUKOCYTES [#/VOLUME] IN BLOOD BY AUTOMATED COUNT 7.22 4.0 - 11.0 02/09 Specimen Type: BLOOD Comment: Automated Differentia l Performed Ordering Provider: MAURICIO LEBRON Report Released Date/Time: Feb 09, 2023 09:41 AM Reporting Lab: [facility] [address] Performing Lab: [facility] [address] [facility] CBC & DIFF ERYTHROCYT ES [#/VOLUME] IN BLOOD BY AUTOMATED COUNT 4.92 4.6 - 6.2 02/09 Specimen Type: BLOOD Comment: Automated Differentia l Performed Ordering Provider: MAURICIO LEBRON Report Released Date/Time: Feb 09, 2023 09:41 AM Reporting Lab: [facility] [address] Performing Lab: [facility] [address] [facility] CBC & DIFF HEMOGLOBIN [MASS/VOLU ME] IN BLOOD 15.0 13.5 - 17.9 02/09 Specimen Type: BLOOD Comment: Automated Differentia l Performed Ordering Provider: MAURICIO LEBRON Report Released Date/Time: Feb 09, 2023 09:41 AM Reporting Lab: [facility] [address] Performing Lab: [facility] [address] [facility] CBC & DIFF HEMATOCRIT [VOLUME FRACTION] OF BLOOD BY AUTOMATED COUNT 44.2 41 - 54 02/09 Specimen Type: BLOOD Comment: Automated Differentia l Performed Ordering Provider: MAURICIO LEBRON Report Released Date/Time: Feb 09, 2023 09:41 AM Reporting Lab: [facility] [address] Performing Lab: [facility] [address] [facility] CBC & DIFF MCV [ENTITIC VOLUME] BY AUTOMATED COUNT 89.8 80 - 100 02/09 Specimen Type: BLOOD Comment: Automated Differentia l Performed Ordering Provider: MAURICIO LEBRON Report Released Date/Time: Feb 09, 2023 09:41 AM Reporting Lab: [facility] [address] Performing Lab: [facility] [address] [facility] CBC & DIFF MCH [ENTITIC MASS] BY AUTOMATED COUNT 30.5 27 - 33 02/09 Specimen Type: BLOOD Comment: Automated Differentia l Performed Ordering Provider: MAURICIO LEBRON Report Released Date/Time: Feb 09, 2023 09:41 AM Reporting Lab: [facility] [address] Performing Lab: [facility] [address] [facility] CBC & DIFF MCHC [MASS/VOLU ME] BY AUTOMATED COUNT 33.9 32.0 - 37.5 02/09 Specimen Type: BLOOD Comment: Automated Differentia l Performed Ordering Provider: MAURICIO LEBRON Report Released Date/Time: Feb 09, 2023 09:41 AM Reporting Lab: [facility] [address] Performing Lab: [facility] [address] [facility] CBC & DIFF PLATELETS [#/VOLUME] IN BLOOD BY AUTOMATED COUNT 403 150 - 400 02/09 H Specimen Type: BLOOD Comment: Automated Differentia l Performed Ordering Provider: MAURICIO LEBRNO Report Released Date/Time: Feb 09, 2023 09:41 AM Reporting Lab: [facility] [address] Performing Lab: [facility] [address] [facility] CBC & DIFF PLATELET MEAN VOLUME [ENTITIC VOLUME] IN BLOOD BY AUTOMATED COUNT 8.9 7.4 - 10.4 02/09 Specimen Type: BLOOD Comment: Automated Differentia l Performed Ordering Provider: MAURICIO LEBRON Report Released Date/Time: Feb 09, 2023 09:41 AM Reporting Lab: [facility] [address] Performing Lab: [facility] [address] [facility] CBC & DIFF NEUTROPHIL S/100 LEUKOCYTES IN BLOOD BY MANUAL COUNT 65.0 02/09 Specimen Type: BLOOD Comment: Automated Differentia l Performed Ordering Provider: MAURICIO LEBRON Report Released Date/Time: Feb 09, 2023 09:41 AM Reporting Lab: [facility] [address] Performing Lab: [facility] [address] [facility] CBC & DIFF LYMPHOCYTE S/100 LEUKOCYTES IN BLOOD BY MANUAL COUNT 22.3 02/09 Specimen Type: BLOOD Comment: Automated Differentia l Performed Ordering Provider: MAURICIO LEBRON Report Released Date/Time: Feb 09, 2023 09:41 AM Reporting Lab: [facility] [address] Performing Lab: [facility] [address] [facility] CBC & DIFF MONOCYTES/ 100 LEUKOCYTES IN BLOOD BY AUTOMATED COUNT 8.9 02/09 Specimen Type: BLOOD Comment: Automated Differentia l Performed Ordering Provider: MAURICIO LEBRON Report Released Date/Time: Feb 09, 2023 09:41 AM Reporting Lab: [facility] [address] Performing Lab: [facility] [address] [facility] CBC & DIFF EOSINOPHIL S/100 LEUKOCYTES IN BLOOD BY AUTOMATED COUNT 1.9 02/09 Specimen Type: BLOOD Comment: Automated Differentia l Performed Ordering Provider: MAURICIO LEBRON Report Released Date/Time: Feb 09, 2023 09:41 AM Reporting Lab: [facility] [address] Performing Lab: [facility] [address] [facility] CBC & DIFF BASOPHILS/ 100 LEUKOCYTES IN BLOOD BY MANUAL COUNT 1.2 02/09 Specimen Type: BLOOD Comment: Automated Differentia l Performed Ordering Provider: MAURICIO LEBRON Report Released Date/Time: Feb 09, 2023 09:41 AM Reporting Lab: [facility] [address] Performing Lab: [facility] [address] [facility] CBC & DIFF ERYTHROCYT E DISTRIBUTI ON WIDTH [RATIO] BY AUTOMATED COUNT 12.2 11.5 - 14.5 02/09 Specimen Type: BLOOD Comment: Automated Differentia l Performed Ordering Provider: MAURICIO LEBRON Report Released Date/Time: Feb 09, 2023 09:41 AM Reporting Lab: [facility] [address] Performing Lab: [facility] [address] [facility] CBC & DIFF LYMPHOCYTE S [#/VOLUME] IN BLOOD BY AUTOMATED COUNT 1.61 1.0 - 4.0 02/09 Specimen Type: BLOOD Comment: Automated Differentia l Performed Ordering Provider: MAURICIO LEBRON Report Released Date/Time: Feb 09, 2023 09:41 AM Reporting Lab: [facility] [address] Performing Lab: [facility] [address] [facility] CBC & DIFF MONOCYTES [#/VOLUME] IN BLOOD BY AUTOMATED COUNT 0.64 0.1 - 1.0 02/09 Specimen Type: BLOOD Comment: Automated Differentia l Performed Ordering Provider: MAURICIO LEBRON Report Released Date/Time: Feb 09, 2023 09:41 AM Reporting Lab: [facility] [address] Performing Lab: [facility] [address] [facility] CBC & DIFF NEUTROPHIL S [#/VOLUME] IN BLOOD BY AUTOMATED COUNT 4.69 2.0 - 7.7 02/09 Specimen Type: BLOOD Comment: Automated Differentia l Performed Ordering Provider: MAURICIO LEBRON Report Released Date/Time: Feb 09, 2023 09:41 AM Reporting Lab: [facility] [address] Performing Lab: [facility] [address] [facility] CBC & DIFF EOSINOPHIL S [#/VOLUME] IN BLOOD BY AUTOMATED COUNT 0.14 0 - 0.5 02/09 Specimen Type: BLOOD Comment: Automated Differentia l Performed Ordering Provider: MAURICIO LEBRON Report Released Date/Time: Feb 09, 2023 09:41 AM Reporting Lab: [facility] [address] Performing Lab: [facility] [address] [facility] CBC & DIFF BASOPHILS [#/VOLUME] IN BLOOD BY AUTOMATED COUNT 0.09 0 - 0.2 02/09 Specimen Type: BLOOD Comment: Automated Differentia l Performed Ordering Provider: MAURICIO LEBRON Report Released Date/Time: Feb 09, 2023 09:41 AM Reporting Lab: [facility] [address] Performing Lab: [facility] [address] [facility] CBC & DIFF IG(META,MY RENÉ,PRO) 0.7 02/09 Specimen Type: BLOOD Comment: Automated Differentia l Performed Ordering Provider: MAURICIO LEBRON Report Released Date/Time: Feb 09, 2023 09:41 AM Reporting Lab: [facility] [address] Performing Lab: [facility] [address] [facility] CBC & DIFF IMMATURE GRANULOCYT ES [PRESENCE] IN BLOOD BY AUTOMATED COUNT 0.05 0 - 0.1 02/09 Specimen Type: BLOOD Comment: Automated Differentia l Performed Ordering Provider: MAURICIO LEBRON Report Released Date/Time: Feb 09, 2023 09:41 AM Reporting Lab: [facility] [address] Performing Lab: [facility] [address] [facility] CRYSTAL PANEL,SY NOVIAL CRYSTALS [TYPE] IN SYNOVIAL FLUID BY LIGHT MICROSCOPY PRESENT 12/26 Specimen Type: SYNOVIAL FLUID Comment: All crystal results are preliminary until the final result comment is entered. Final review of crystals will occur on the next business day. Left Knee Ordering Provider: ANDREA VALDES Report Released Date/Time: Dec 26, 2022 10:11 AM Reporting Lab: [facility] [address] Performing Lab: [facility] [address] [place] [facility] CRYSTAL PANEL,SY NOVIAL URATE CRYSTALS [PRESENCE] IN SYNOVIAL FLUID BY LIGHT MICROSCOPY MANY 12/26 Specimen Type: SYNOVIAL FLUID Comment: All crystal results are preliminary until the final result comment is entered. Final review of crystals will occur on the next business day. Left Knee Ordering Provider: ANDREA VALDES Report Released Date/Time: Dec 26, 2022 10:11 AM Reporting Lab: [place] [id number] Performing Lab: [place] [address] [facility] CELL COUNT(OLIVIA DY FLUID) COLOR OF SYNOVIAL FLUID LT. YELLOW 12/26 Specimen Type: SYNOVIAL FLUID Comment: The Reference range and other method performance specificati ons have not been established for this body fluid. The test result must be integrated into the clinical context of interpretat ion. Left Knee Unable to reach provider for corrected result.6- -23/HSM WBC(BF) reported incorrectly as 6646 by [[id number] 18]. Changed to [id number] on Dec 29, 2022@11:50 by [[id number] 8]. Ordering Provider: ANDREA VALDES Report Released Date/Time: Dec 26, 2022 10:11 AM Reporting Lab: [facility] [address] Performing Lab: [facility] [address] [place] [facility] CELL COUNT(OLIVIA DY FLUID) LEUKOCYTES [#/VOLUME] IN SYNOVIAL FLUID BY MANUAL COUNT 41023 12/26 Specimen Type: SYNOVIAL FLUID Comment: The Reference range and other method performance specificati ons have not been established for this body fluid. The test result must be integrated into the clinical context of interpretat ion. Left Knee Unable to reach provider for corrected result.6-12 -23/HSM WBC(BF) reported incorrectly as 6646 by [[id number] 18]. Changed to [id number] on Dec 29, 2022@11:50 by [[id number] 8]. Ordering Provider: ANDREA VALDES Report Released Date/Time: Dec 26, 2022 10:11 AM Reporting Lab: [facility] [address] Performing Lab: [facility] [address] [place] [facility] CELL COUNT(OLIVIA DY FLUID) ERYTHROCYT ES [#/VOLUME] IN SYNOVIAL FLUID BY MANUAL COUNT 89 12/26 Specimen Type: SYNOVIAL FLUID Comment: The Reference range and other method performance specificati ons have not been established for this body fluid. The test result must be integrated into the clinical context of interpretat ion. Left Knee Unable to reach provider for corrected result.6-12 -23/HSM WBC(BF) reported incorrectly as 6646 by [[id number] 18]. Changed to [id number] on Dec 29, 2022@11:50 by [[id number] 8]. Ordering Provider: ANDREA VALDES Report Released Date/Time: Dec 26, 2022 10:11 AM Reporting Lab: [facility] [address] Performing Lab: [facility] [address] [place] [facility] CELL COUNT(OLIVIA DY FLUID) APPEARANCE OF SYNOVIAL FLUID HAZY 12/26 Specimen Type: SYNOVIAL FLUID Comment: The Reference range and other method performance specificati ons have not been established for this body fluid. The test result must be integrated into the clinical context of interpretat ion. Left Knee Unable to reach provider for corrected result.6-12 -23/HSM WBC(BF) reported incorrectly as 6646 by [[id number] 18]. Changed to [id number] on Dec 29, 2022@11:50 by [[id number] 8]. Ordering Provider: ANDREA VALDES Report Released Date/Time: Dec 26, 2022 10:11 AM Reporting Lab: [facility] [address] Performing Lab: [facility] [address] [place] [facility] CELL COUNT(OLIVIA DY FLUID) NEUTROPHIL S/100 LEUKOCYTES IN SYNOVIAL FLUID 88.5 12/26 Specimen Type: SYNOVIAL FLUID Comment: The Reference range and other method performance specificati ons have not been established for this body fluid. The test result must be integrated into the clinical context of interpretat ion. Left Knee Unable to reach provider for corrected result.6-12 -23/HSM WBC(BF) reported incorrectly as 6646 by [[id number] 18]. Changed to [id number] on Dec 29, 2022@11:50 by [[id number] 8]. Ordering Provider: ANDREA VALDES Report Released Date/Time: Dec 26, 2022 10:11 AM Reporting Lab: [facility] [address] Performing Lab: [facility] [address] [place] [facility] CELL COUNT(OLIVIA DY FLUID) UNIDENTIFI ED CELLS/100 LEUKOCYTES IN SYNOVIAL FLUID 0.0 12/26 Specimen Type: SYNOVIAL FLUID Comment: The Reference range and other method performance specificati ons have not been established for this body fluid. The test result must be integrated into the clinical context of interpretat ion. Left Knee Unable to reach provider for corrected result.6-12 -23/HSM WBC(BF) reported incorrectly as 6646 by [[id number] 18]. Changed to [id number] on Dec 29, 2022@11:50 by [[id number] 8]. Ordering Provider: ANDREA VALDES Report Released Date/Time: Dec 26, 2022 10:11 AM Reporting Lab: [facility] [address] Performing Lab: [facility] [address] [place] [facility] CELL COUNT(OLIVIA DY FLUID) MONOCYTES+ MACROPHAGE S/100 LEUKOCYTES IN SYNOVIAL FLUID BY MANUAL COUNT 10.5 12/26 Specimen Type: SYNOVIAL FLUID Comment: The Reference range and other method performance specificati ons have not been established for this body fluid. The test result must be integrated into the clinical context of interpretat ion. Left Knee Unable to reach provider for corrected result.6-12 -23/HSM WBC(BF) reported incorrectly as 6646 by [[id number] 18]. Changed to [id number] on Dec 29, 2022@11:50 by [[id number] 8]. Ordering Provider: ANDREA VALDES Report Released Date/Time: Dec 26, 2022 10:11 AM Reporting Lab: [facility] [address] Performing Lab: [facility] [address] [place] [facility] CELL COUNT(OLIVAI DY FLUID) EOSINOPHIL S/100 LEUKOCYTES IN SYNOVIAL FLUID 0.0 12/26 Specimen Type: SYNOVIAL FLUID Comment: The Reference range and other method performance specificati ons have not been established for this body fluid. The test result must be integrated into the clinical context of interpretat ion. Left Knee Unable to reach provider for corrected result.6-12 -23/HSM WBC(BF) reported incorrectly as 6646 by [[id number] 18]. Changed to [id number] on Dec 29, 2022@11:50 by [[id number] 8]. Ordering Provider: ANDREA VALDES Report Released Date/Time: Dec 26, 2022 10:11 AM Reporting Lab: [facility] [address] Performing Lab: [facility] [address] [place] [facility] CELL COUNT(OLIVIA DY FLUID) BASOPHILS/ 100 LEUKOCYTES IN SYNOVIAL FLUID 0.0 12/26 Specimen Type: SYNOVIAL FLUID Comment: The Reference range and other method performance specificati ons have not been established for this body fluid. The test result must be integrated into the clinical context of interpretat ion. Left Knee Unable to reach provider for corrected result.6-12 -23/HSM WBC(BF) reported incorrectly as 6646 by [[id number] 18]. Changed to [id number] on Dec 29, 2022@11:50 by [[id number] 8]. Ordering Provider: ANDREA VALDES Report Released Date/Time: Dec 26, 2022 10:11 AM Reporting Lab: [facility] [address] Performing Lab: [facility] [address] [place] [facility] CELL COUNT(OLIVIA DY FLUID) PLASMA CELLS/100 LEUKOCYTES IN SYNOVIAL FLUID BY MANUAL COUNT 0.0 12/26 Specimen Type: SYNOVIAL FLUID Comment: The Reference range and other method performance specificati ons have not been established for this body fluid. The test result must be integrated into the clinical context of interpretat ion. Left Knee Unable to reach provider for corrected result.6-12 -23/HSM WBC(BF) reported incorrectly as 6646 by [[id number] 18]. Changed to [id number] on Dec 29, 2022@11:50 by [[id number] 8]. Ordering Provider: ANDREA VALDES A Report Released Date/Time: Dec 26, 2022 10:11 AM Reporting Lab: [facility] [address] Performing Lab: [facility] [address] [facility] CELL COUNT(OLIVIA DY FLUID) LYMPHOCYTE S/100 LEUKOCYTES IN SYNOVIAL FLUID 1.0 12/26 Specimen Type: SYNOVIAL FLUID Comment: The Reference range and other method performance specificati ons have not been established for this body fluid. The test result must be integrated into the clinical context of interpretat ion. Left Knee Unable to reach provider for corrected result.12-29/HSM WBC(BF) reported incorrectly as 6646 by [[id number] 18]. Changed to [id number] on Dec 29, 2022@11:50 by [[id number] 8]. Ordering Provider: ANDREA VALDES Report Released Date/Time: Dec 26, 2022 10:11 AM Reporting Lab: [facility] [address] Performing Lab: [facility] [address] [facility] Vital Signs Combined list of inpatient and outpatient Vital Signs from Department of Defense and Veterans Affairs, ranging from 12 months to all on record, depending upon the facility. Vital Sign Value Date Comments Source SYSTOLIC BLOOD PRESSURE 150 02/09/2023 09:12:42 [facility] DIASTOLIC BLOOD PRESSURE 94 02/09/2023 09:12:42 [facility] PULSE OXIMETRY 98% 02/09/2023 09:12:42 [facility] WEIGHT 259.4 02/09/2023 09:12:42 [facility] BMI 33kg/m2 02/09/2023 09:12:42 [facility] PAIN 0 02/09/2023 09:12:42 [facility] HEIGHT 74.5 02/09/2023 09:12:42 [facility] TEMPERATURE 97 02/09/2023 09:12:42 [facility] PULSE 80 02/09/2023 09:12:42 [facility] RESPIRATION 16 02/09/2023 09:12:42 [facility] SYSTOLIC BLOOD PRESSURE 153 12/26/2022 09:01:00 [facility] DIASTOLIC BLOOD PRESSURE 98 12/26/2022 09:01:00 [facility] PULSE OXIMETRY 99% 12/26/2022 09:01:00 [place] [facility] PAIN 8 12/26/2022 09:01:00 [facility] TEMPERATURE 97.3 12/26/2022 09:01:00 [facility] PULSE 95 12/26/2022 09:01:00 [facility] RESPIRATION 14 12/26/2022 09:01:00 [facility] Encounters Combined list of: 1) Encounters from Department of Veterans Affairs facilities going back up to thelast 18 months. 2) Encounters from the Department of Defense facilities going back up to 280 months. Location Location Details Encounter Type Encounter Number Reason For Visit Attending Provider ADM Date DC Date Status [place]position Source [place] [employer] [place] [place] OUTPATIENT [id number] JUAN MIRELES 02/23 Released w/o Limitations [place] [employer] [place] [place] [place] [employer] [place] [place]) OUTPATIENT [id number] MULTIPL E LIPOMAS JANELLE DONOHUE 05/05 Released w/o Limitations [place] [employer] [place] [place] [place] [employer] [place]) OUTPATIENT [id number] lipoma removl x 2 DONY LUGO 05/08 Released w/o Limitations [place] [employer] [place] [place] [place] [employer] [place] [facility] [place] OUTPATIENT [id number] post op fu JANELLE DONOHUE 05/28 Released w/o Limitations [place] [employer] [place] [place] [employer] [place] DENTAL [id number] OS Eval 3rd Molars LEW RAJAN 11/29 Released w/o Limitations [place] [employer] [place] [place] [facility] [place] DENTAL [id number] OS Ext.#1, 17 LEW RAJAN M 12/08 Sick at Home/Quarter s [facility] [place] [place] OUTPATIENT [id number] FILOMENA VAUGHN M 02/15 Released w/o Limitations [facility] [place] [place] [facility] Outpatient Encounter [id number] 12[facility]24 [facility] EMERGENCY [place]PT [place]IT [place] MDM [id number] Diagnos is: ICD-10- CM M1A.062 0 Idiopat hic chronic gout, left knee, without tophus (tophi)
JARED VALDES 12/26 [facility] [place] [facility] Outpatient Encounter [id number] 12/26 [facility] [place] [facility] Outpatient Encounter [id number] 01/29 [facility] OFFICE O/P EST MOD 30-39 MIN [id number] Diagnos is: ICD-10- CM Z00.8 Encount er for other general examina tion
Flavio LEBRON 02/09 [facility] [place] [facility] Outpatient Encounter [id number] BRAYDON MCINTYRE 10[facility]15 [facility] [place] [facility] Outpatient Encounter [id number] 10/15 [facility] [place] [facility] Outpatient Encounter [id number] 10/20 [facility] [place] [facility] Outpatient Encounter [id number] 10/20 [facility] [place] [facility] Outpatient Encounter [id number] 10/28 [facility] [place] [facility] Outpatient Encounter [id number] RA GINO [facility]QUIEL [facility] [place] [facility] Outpatient Encounter [id number] 10/29 [facility] Procedures Combined list of: 1) Procedures from Department of [facility] Affairs facilities going back up to theadventhealtht 18 months, not all [place] non-surgical procedures are included; 2) All procedures from the Department of Defense facilities. Procedure Procedure Type Code Date Perfomer Comments Sour e Physician Services Special Review / Reporting Of Patient Status Physician Services Special Review / Reporting Of Patient Status [id number] 02/16/2008 FILOMENA VAUGHN [facility] Special Physician Services Analysis Of Computerized Data Special Physician Services Analysis Of Computerized Data 46704 02/16[facility]2008 [facility] Physician Supervised Services Provision Of Educational Supplies Physician Supervised Services Provision Of Educational Supplies 20364 02/16/2008 [facility] Audiometry Group Testing Audiometry Group Testing 91616 02/16/2008 [facility] Threshold Audiogram (Pure Tone) Threshold Audiogram (Pure Tone) 53446 02/16/2008 [facility] Threshold Audiogram (Pure Tone) Threshold Audiogram (Pure Tone) 51485 02/23/2006 JUAN MIRELES [facility] NONINVASIVE EAR OR PULSE OXIMETRY FOR OXYGEN SATURATION; SINGLE DETERMINATION 07/10/2004 [facility] NONINVASIVE EAR OR PULSE OXIMETRY FOR OXYGEN SATURATION; SINGLE DETERMINATION 07/09/2004 [facility] PURE TONE AUDIOMETRY (THRESHOLD); AIR ONLY 05/02/2004 [facility] SPECIAL REPORTS SUCH INSURANCE FORMS, MORE THAN THE INFORMATION CONVEYED IN THE USUAL MEDICAL COMMUNICATIONS OR STANDARD REPORTING FORM 02/16/2008 [facility] INTRAVENOUS INFUSION, FOR THERAPY, PROPHYLAXIS, OR DIAGNOSIS (SPECIFY SUBSTANCE OR DRUG); EACH ADDITIONAL HOUR (LIST SEPARATELY IN ADDITION TO CODE FOR PRIMARY PROCEDURE) 05/11/2006 [facility] UNLISTED SPECIAL SERVICE, PROCEDURE OR REPORT 05/11/2006 [facility] PURE TONE AUDIOMETRY (THRESHOLD); AIR ONLY 02/23/2006 [facility] THERAPEUTIC, PROPHYLACTIC OR DIAGNOSTIC INJECTION (SPECIFY MATERIAL INJECTED); SUBCUTANEOUS OR INTRAMUSCULAR 06/28/2004 [facility] INFLUENZA VIRUS VACCINE, TRIVALENT (IIV3), SPLIT VIRUS, 0.5 ML DOSAGE, FOR INTRAMUSCULAR USE 06/24/2004 [facility] Social History Combined list of available smoking, tobacco, and other social history from Department of Defense and Veterans Affairs facilities. Social History Type Response Date Comment Sourc e Tobacco smoking status NHIS VA-TOBACCO FORMER USER 02/09/2023 [facility] History of tobacco use VA-TOBACCO QUIT 1 TO < 5 YRS 02/09/2023 [facility]LAIN History of tobacco use FORMER TOBACCO USE <1Y 11/09/2013 [facility] History of tobacco use CURRENT TOBACCO USER 03/20/2009 [facility] This section is an empty social history section. [facility] Plan of Care List of future care activities from Department of Veterans Affairs facilities. Additional future care activities may be listed in the Assessment and Plan section. Date/Time Care Activity Care Activity Detail Facili ty 10/30/2023 AMBULATORY - NONE AMBULATORY - NONE [facility] 10/29/2023 Consult Order [facility] Cons [employer] [facility] 10/30/2023 Imaging - Magnetic R esonance Imaging (MRI) Order MRI ELBOW RIGHT (P) [facility] MCCLAIN
--- OUTSIDE RECORDS SUMMARY | 2023-10-30 10:05 | XMS_ITS | Clinical Summary ---
Author Name Unknown Organization [facility] [facility] Address [place] [address] Care Team Providers Care Drop Shipment Clerk Name Role Phone Pcp, No Primary Care Provider Unavailabl e Social History Tobacco Use Types Packs/Day Years Used Date Smoking Tobacco: Never Assessed Sex and Gender Information Value Date Recorded Sex Assigned at Not on file Gender Identity Not on file Sexual Orientation Not on file Plan of Treatment Not on file Care Teams Drop Shipment Clerk Relationship Specialty Start Date End Date Pcp, No . PCP - General 12/13/10
--- OUTSIDE RECORDS SUMMARY | 2023-10-30 10:06 | XMS_ITS | Encounter Summary ---
Author Name [employer] of [employer] Organization [employer] Address [address] [place] [address] Support Name Relationship Address Phone VETO VELIZ Next of Kin [address] [place] [address] VETO ABDALLA Emergency Contact [address] [place] [phone] VETO ABDALLA Next of Kin [address] [place] [phone] VETO ABDALLA Emergency Contact [address] [place] [phone] Insurance Providers: All historical and current [...] SCRIPTS) PRESCRIPT ION NTCA Oct 26, 2014 [id number] [phone] TITI ABDALLA PATIENT [facility] H Oct 26, 2014 [id number] [phone] TITI ABDALLA PATIENT Selected Encounter This section includes the information on record at ID for the Encounter. Date/Time Encounter Type Encounter Description Reason Provider Source Oct 16, 2023 08:53 AM Outpatient Encounter TELEPHONE TRIAGE BRAYDON MCINTYRE Encounter Template Text not used by ID Plan of Treatment: Future Appointments (+ 6 [...] 20 appointments. The data comes from all [facility]. Appointment Date/Time Appointment Type Appointme nt Facility Name Oct 30, 2023 10:15 AM AMBULATORY - NONE [facility] Active, Pending, and Scheduled Orders This section includes a listing of several types of active, pending, and scheduled orders, including clinic medications orders, diagnostic test orders, procedure orders and consult orders; where the start date of the order is 45 days before the date of the Encounter or 45 days after the date of theEncounter. The data comes from all [facility]. Test Date/Time Test Type Test Details Facility Name Oct 29, 2023 04:02 PM Consult Order COMMUNITY CARE-MRI Cons [facility] MAG[facility] MCCLAIN Oct 30, 2023 12:00 AM Imaging - Magnetic Resonance Imaging (MRI) Order MRI ELBOW RIGHT (P) [facility] MCCLAIN Social History: Smoking Status (Most current) and Tobacco Use (All prior to encounter date) This section includes the most current, and the historical, smoking and tobacco- related health factors from the ID facility where the Encounter took place. Current Smoking Status This section includes the most current smoking, or tobacco-related health factor, from the [facility] where the Encounter took place. Date/Time Current Smoking Status Comment Facil ity Nov 09, 2013 09:07 AM FORMER TOBACCO USE <1Y [facility] Tobacco Use History This section includes a history of the smoking, or tobacco-related health factors, that were collected on or before the date of the Encounter. The data comes from the [facility] where the Encounter took place. Date/Time Smoking Status/Tobacco Use Comment F acility Mar 20, 2009 12:34 AM CURRENT TOBACCO USER [facility] Encounter Notes: All associated encounter notes This section contains the clinical notes associated to the Encounter. Date/Time Encounter Note(s) Provider Source Oct 16, 2023 08:54 AM RN PROGRESS NOTE: LOCAL TITLE: CCC: CLINICAL TRIAGE STANDARD TITLE: RN PROGRESS NOTE DATE OF NOTE: OCT 16, 2023@08:54:04 ENTRY DATE: OCT 16, 2023@08:54:04 AUTHOR: OBERLITNER,BRAYDON K EXP COSIGNER: URGENCY: STATUS: COMPLETED Patient Demographics Patient Name: LANDON ABDALLA Patient Primary Address: [facility] [place] [id number] Patient Primary Patient : 1985 Patient Age: 38 Call Back Number: Caller/Recipient Relation to Patient: Self Emergency Contact: VETO ABDALLA Triage Summary Conducted triage/discussed symptoms Pain Score: 5 (Moderate to Severe Pain) Utilized the Triage Tool: Yes Chief Complaint: Arm Pain (one arm) System WHEN: Within 24 Hours Nurse's Recommendation / WHEN: Within 24 Hours System WHERE: Clinic Nurse's Recommendation / WHERE: Urgent Non-[facility] WHEN/WHERE modifier reason: No Appointments Available Patient Disposition Patient/Caregiver agrees to plan of care: Yes Patient WHERE: Urgent Care non-[facility] Patient WHEN: Within 24 hours Nursing Plan and Disposition Referred patient to higher level of care Instructed to go to Urgent Care (UC) Other course(s) of action Provided guidance for worsening symptoms: *Caller/Patient* advised to call facilities ID Clinical Contact Center or seek immediate medical attention for new or worsening symptoms Nurse Summary Nurse Summary: PATIENT CONCERN/DURATION/ONSET: reports injury to right elbow last Thursday while bowling. He reports pain at 5 out of 10 on pain scale. He reports mild swelling to area, denies any warmth to touch or redness to area. [place] reports decreased range of motion to area. WHAT HAS PATIENT TRIED TO TREAT THE SYMPTOMS: Decreased activity with little relief HISTORY/PREVIOUS TREATMENT: Gout WHAT IS PATIENT GOAL FOR THE CALL: Recommendation Was Virtual Care Visit considered (TELE or VVC)? No, may benefit from imaging. JAVA TECH LEAD DISPOSITION: Recommended triage is urgent care today secondary to severity of pain (5 out of 10). advised on [place] Act and instructed to call: to speak to an agent to verify eligibility and be given location(s) to receive care. [place] advised updated home care instructions will be given by Provider based on clinical evaluation findings during visit. [place] advised on signs/symptoms to call back. [place] advised to call back if any follow up care or referrals are needed after evaluation. acknowledges and verbalizes understanding of recommendations and advice given. This note was created by a [address] data transcriber. Please do not alert this nurse by adding as a signer for future communications. Alerts are not monitored by this user, please reach out to [facility] Leadership instead if indicated. Clinical Contact Center Codes Clinic/Location: [address] PHONE CCC RN TXCC Triage Complete Triage Date: 10/16/2023 7:47 AM Triage Note: Phone Triage 16 Oct 2023 13:39:16 +0000 [facility] Demographics 38 y/o Male Results CC: Arm Pain (one arm) Software suggested: Within 24 Hours Software suggested follow-up location: Clinic[facility] Values and Measures Duration of CC: 1 Weeks Positive Responses HPI: arm pain, localized to elbow HPI: elbow pain, moderate to severe HPI: elbow swelling, with elbow pain HPI: skin swelling, elbow, worsening PMH: gout VS: temperature not taken Negative Responses Denies: HPI: arm pain, localized to shoulder Denies: HPI: axillary lymphadenopathy Denies: HPI: elbow injury, within past 2 days Denies: HPI: elbow pain, severe Denies: HPI: red streaks, from a spot on the elbow Denies: HPI: skin erythema, elbow Denies: HPI: skin lump, swollen, painful, over the elbow Denies: MEDS: chemotherapy Denies: PMH: diabetes Denies: PMH: HIV positive Denies: PMH: rheumatoid arthritis Denies: PMH: sickle cell anemia Denies: PMH: systemic lupus erythematosus Denies: PSH: elbow surgery, within past week Denies: PSH: organ transplant Education Verbal Education Provided for: Elbow Pain Home Care Education Log Home Care Instructions will be given by Provider after evaluation. Notify your provider if you have any of the following: Worsening elbow pain Worsening elbow redness Worsening elbow swelling Decreased range of motion to area /es/ BRAYDON MCINTYRE V23 [facility] RN Signed: 10/16/2023 08:54 BRAYDON MCINTYRE [facility]
--- OUTSIDE RECORDS SUMMARY | 2023-10-30 10:06 | XMS_ITS | Encounter Summary ---
Author Name [facility] Organization [employer] of [employer] Address [address] [place] [address] Support Name Relationship Address Phone VETO VEILZ Next of Kin [address] [place] [address] VETO ABDALLA Emergency Contact [address] [place] [phone] VETO ABDALLA Next of Kin [address] [place] [address] VETO ABDALLA Emergency Contact [address] [place] [phone] Insurance Providers: All historical and current [...] SCRIPTS) PRESCRIPT ION NTCA Oct 26, 2014 [id number] [phone] TITI ABDALLA PATIENT [facility] H Oct 26, 2014 [id number] [phone] TITI ABDALLA PATIENT Selected Encounter This section includes the information on record at MD for the Encounter. Date/Time Encounter Type Encounter Description Reason Pro vider Source Oct 16, 2023 12:00 PM Outpatient Encounter EVENT (HISTORICAL) IHE Encounter Template [...] 20 appointments. The data comes from all [facility]. Appointment Date/Time Appointment Type Appointme nt Facility Name Oct 30, 2023 10:15 AM [facility] Active, Pending, and Scheduled Orders This section includes a listing of several types of active, pending, and scheduled orders, including clinic medications orders, diagnostic test orders, procedure orders and consult orders; where the start date of the order is 45 days before the date of the Encounter or 45 days after the date of theEncounter. The data comes from all [facility]. Test Date/Time Test Type Test Details Facility Name Oct 29, 2023 04:02 PM Consult Order COMMUNITY CARE-MRI Cons Case [facility] MCCLAIN Oct 30, 2023 12:00 AM Imaging - Magnetic Resonance Imaging (MRI) Order MRI ELBOW RIGHT (P) [facility] MCCLAIN Social History: Smoking Status (Most current) and Tobacco Use (All prior to encounter date) This section includes the most current, and the historical, smoking and tobacco- related health factors from the MD facility where the Encounter took place. Current Smoking Status This section includes the most current smoking, or tobacco-related health factor, from the [facility] where the Encounter took place. Date/Time Current Smoking Status Comment Facil ity Nov 09, 2013 09:07 AM FORMER TOBACCO USE <1Y [facility] Tobacco Use History This section includes a history of the smoking, or tobacco-related health factors, that were collected on or before the date of the Encounter. The data comes from the MD facility where the Encounter took place. Date/Time Smoking Status/Tobacco Use Comment F acility Mar 20, 2009 12:34 AM CURRENT TOBACCO USER [facility] Encounter Notes: All associated encounter notes This section contains the clinical notes associated to the Encounter. Date/Time Encounter Note(s) Provider Source Oct 29, 2023 11:25 AM ADDENDUM: LOCAL TITLE: Addendum STANDARD TITLE: ADDENDUM DATE OF NOTE: OCT 29, 2023@11:25:15 ENTRY DATE: OCT 29, 2023@11:25:16 AUTHOR: CHARI JONES EXP COSIGNER: URGENCY: STATUS: COMPLETED Urgent request received from [facility] requesting for CC MRI consult. Uploaded to [facility] and alerting PACT team for review and requesting to place consult. [place] is scheduled for an appointment tomorrow. Blank RFAS has sent to vendor and requested to fax back noe but to prevent from delay in care happening, requesting PACT to place consult noe. Community Care RN to contact with questions regarding this care: Chari Jones RN /moe/ CHARI JONES RN SURVEY RESEARCH ANALYST HIDE SPLITTER Signed: 10/29/2023 11:29 Receipt Acknowledged By: 10/29/2023 11:44 /moe/ JJ LEBRON PHYSICIAN 10/29/2023 12:47 /moe/ MARIELY KNUTSON RN REGISTERED NURSE --- Original Document --- 10/16/23 COMMUNITY CARE REQUEST NOTE: [facility] - Scanned Document [facility] Records requesting for MRI SCANNED DOCUMENT SIGNATURE NOT REQUIRED Electronically Filed: 10/29/2023 by: CHARI JONES RN SURVEY RESEARCH ANALYST HIDE SPLITTER 10/29/2023 ADDENDUM STATUS: COMPLETED It is my understanding that [facility] and [facility] determine if it goes out to the community or not. I cannot directly order a cc MRI. [facility]ri [facility] and they [facility] CC. /moe/ JJ LEBRON PHYSICIAN Signed: 10/29/2023 11:47 CHARI JONES [facility]
--- NOTE | 2023-10-30 10:15 | MR_ITS ---
Patient: LANDON ABDALLA Facility:?[facility] RIS Patient ID:?[id number] Site Patient ID:?[id number]. Site :?1985 Study:?MRI-Extremity Right ELBOW WO-10/30/2023 11:20:06 AM Ordering Physician:MERE Final Report: EXAM: MRI OF THE RIGHT ELBOW, WITHOUT CONTRAST CLINICAL INDICATION: Elbow pain. Unable to fully straighten. COMPARISON PLAIN FILMS: 10/16/2023. COMPARISON CROSS-SECTIONAL IMAGING STUDIES: None. TECHNICAL: Axial, sagittal and coronal T1, PD, PD FS and STIR images. Surface coil. FINDINGS: MYOTENDINOUS STRUCTURES: Biceps: Intact. No tendinosis, tendon tear or bursitis. Common Extensor Tendon and Forearm Extensors: Injury of the common extensor tendon with a thin delaminating tear that measures 2 cm CC x 1.2 cm AP x 0.2 cm RL. Additional adjacent low-grade interstitial tearing. Mild to moderate tendinopathy. Reactive edema in the lateral epicondyle. Moderate lateral subcutaneous edema. Common Flexor Tendon and Forearm Flexors: No tendon tear, tendinosis or muscle strain. Brachialis: No strain or tear. Supinator: No strain or tear. Triceps: Normal. - LIGAMENTS: Medial Ligament: The ulnar collateral ligament is intact. Lateral Ligaments: Irregular high-grade partial-thickness tear of the radial collateral ligament proximally. The lateral ulnar collateral ligament is intact. - ELBOW JOINT: Joint Space: Egeqyxba-ga-jokzw elbow joint effusion with mild synovitis. No loose bodies. Articular Cartilage: No cartilage defect or osteochondral abnormality. Radiohumeral Plica: No pathologic thickening or enlargement. Periarticular Ganglion/Cyst: None present. - BONES: No fracture or contusion. - NERVES: Ulnar: Normal; without thickening, edema, mass or subluxation. Median: Normal. Radial: Normal. - SOFT TISSUES: No additional soft tissue abnormality. IMPRESSION: 1. Tear of the common extensor tendon origin with a thin delaminating component and low-grade interstitial tearing. Ittc-tj-dvagusrc tendinopathy. Reactive edema in the lateral epicondyle and lateral subcutaneous tissues. 2. High-grade partial-thickness tear of the radial collateral ligament. 3. Midrgril-av-ebyyw elbow joint effusion with mild synovitis. Dictated by Tenzin Banegas MD @ 10/30/2023 1:57:01 PM Signed by:?Tenzin Banegas MD @10/30/2023 1:57:01 PM (Electronic Signature)
== END 2023-10-30 10:03 | disposition home or self-care (01) ==
LOC: MRI 10:03
PROVIDERS: Visit Provider Physician Assistant
DX: M25.521 Pain in right elbow (principal); S53.431A Radial collateral ligament sprain of right elbow, initial encounter; M25.421 Effusion, right elbow
CPT/HCPCS: 73221